=== PATIENT | male | born 1995 | race Caucasian/White ===

== ENCOUNTER 2019-02-26 12:34 | Emergency (ER) | payer OTHER ==
[2019-02-26 13:00] VITALS: BP 129/66; PULSE 70; TEMP 98.1; BMI 20.9
--- NOTE | 2019-02-26 13:00 | PDOC ---
History of Present Illness - General Chief Complaint: Laceration Stated Complaint: HEAD LACERATION Time Seen by Provider: 02/26/19 12:40 - History of Present Illness Initial Comments: 02/26/19 12:54 23m with no pmh presents to the ED after hitting his head against a metal bar at the gym. No loc no dizziness no cvhang ein vision or feeling sleepy, no nausea. Wound was thoroughly washed with water and steristrips were placed. Past History - Past Medical History Allergies/Adverse Reactions: Allergies Allergy/AdvReac Type Severity Reaction Status Date / Time No Known Allergies Allergy Verified 02/26/19 12:36 Home Medications: Ambulatory Orders NK [No Known Home Medication] 02/26/19 Review of Systems - Review of Systems Able to Perform ROS?: Yes Is the patient limited [place] proficient: No Constitutional: No: Symptoms Reported HEENTM: Yes: See HPI Respiratory: No: Symptoms reported Cardiac (ROS): No: Symptoms Reported ABD/GI: No: Symptoms Reported : No: Symptoms Reported Musculoskeletal: No: Symptoms Reported Integumentary: No: Symptoms Reported Neurological: No: Symptoms reported All Other Systems: Reviewed and Negative *Physical Exam - Physical Exam General Appearance: Yes: Nourished, Appropriately Dressed. No: Apparent Distress HEENT: positive: Other (1cm vertical laceration to the middle of the forhead. ) Respiratory/Chest: positive: Lungs Clear, Normal Breath Sounds. negative: Chest Tender, Respiratory Distress Cardiovascular: positive: Regular Rhythm, Regular Rate, S1, S2 Gastrointestinal/Abdominal: positive: Normal Bowel Sounds, Flat, Soft. negative : Tender Extremity: positive: Normal Capillary Refill, Normal Inspection, Normal Range of Motion Integumentary: positive: Normal Color, Dry, Warm Neurologic: positive: Fully Oriented, Alert, Normal Mood/Affect, Normal Response , Motor Strength 5/5 Procedures - Consent Consent obtained: Verbal, From Patient - Laceration/Wound Repair Upper Anterior Head Wound Length: to 2.5 cm Wound Explored: clean Wound's Depth, Shape: superficial, linear Wound Repaired With: Dermabond Medical Decision Making - Medical Decision Making 02/26/19 12:57 23m with linear lac to the forehead. Easily approximated wound. Dermabond used. No concern for head bleed or fracture. Ok to dc with recommendations. Discharge - Discharge Information Problems reviewed: Yes Clinical Impression/Diagnosis: Forehead laceration Condition: Good Disposition: HOME - Admission No - Follow up/Referral - Patient Discharge Instructions Patient Printed Discharge Instructions: DI for Laceration Repair With Dermabond Additional Instructions: Come back to the emergency department for any new, worsenign or concerning symptoms. Follow up with your primary care physician within the next 3 days. Do not wet the area for 24h. If the wound reopens until then, come back to the Emergency department for sutures. - Post Discharge Activity
--- NOTE | 2019-02-26 13:07 | PDOC ---
Attending Attestation - Resident Resident Name: HiAbbe - ED Attending Attestation I have performed the following: I have examined & evaluated the patient, The case was reviewed & discussed with the resident, I agree w/resident's findings & plan, Exceptions are as noted - HPI HPI: 02/26/19 14:10 23 years old sustained laceration to forehead after hitting forehead on a metal bar gym no loss of consciousness no weakness no numbness no headache small laceration to forehead. Mild discomfort persistent constant tetanus up-to-date - Physicial Exam PE: 02/26/19 14:10 Vitals: Triage Vital signs reviewed General Appearance: No acute distress, well nourished well developed, Head: 1 cm laceration to forehead Eyes: Pupils equal reactive round, extraocular movement intact Extremities: Full range of motion to all extremities, no cyanosis, clubbing, or edema Skin: Warm and dry, no rashes or lesions, no rash, no petechiae Psych: Normal mood, normal affect - Medical Decision Making 02/26/19 13:07 Laceration repaired with Dermabond with good approximation Patient made aware of scar Findings, the need for follow-up and strict return instructions discussed with patient.
== END 2019-02-26 13:04 | disposition home or self-care (01) ==
LOC: FER 12:34
PROC: 0HQ0XZZ Repair Scalp Skin, External Approach (ICD-10-PCS; principal; 2019-02-26)
DX: S01.01XA Laceration without foreign body of scalp, initial encounter (principal); W21.89XA Striking against or struck by other sports equipment, initial encounter; Y93.B9 Activity, other involving muscle strengthening exercises; Y92.39 Other specified sports and athletic area as the place of occurrence of the external cause
CPT/HCPCS: 99282-25